=== PATIENT | female | born 1980 | race Caucasian/White ===

== ENCOUNTER 2021-06-29 11:59 | Outpatient (REF) | payer SELFPAY ==
[2021-06-30 08:59] LABS: Syphilis Screen Nonreactive (Nonreactive)
[2021-07-01 01:57] LABS: Rubeola IgG (Measles) >300.00 AU/mL
[2021-07-02 00:06] LABS: TS Negative Control Passed; TS Panel A 0; TS Panel B 0; TS Positive Control Passed; TSpotTB Negative (SeeBelow)
== END 2021-06-29 12:00 | disposition home or self-care (01) ==
LOC: HO.LAB 11:59
PROVIDERS: Visit Provider Internal Medicine
DX: Z00.00 Encounter for general adult medical examination without abnormal findings (principal)
CPT/HCPCS: 36415; 86481; 86735; 86762; 86765; 86780